=== PATIENT | male | born 2000 | race Caucasian/White ===

== ENCOUNTER 2023-04-18 05:45 | Emergency (ER) | payer MEDICAID ==
[~2023-04-18] VITALS: Ht 170.2 cm; Wt 90.7 kg
--- NOTE | 2023-04-18 05:45 | NUR ---
ANGELA [facility] TO CHAIR
[2023-04-18 05:53] VITALS: BP 128/80
--- NOTE | 2023-04-18 06:00 | NUR ---
DR. CALVILLO EVALUTING PT
[2023-04-18 06:11] VITALS: BP 128/80
--- NOTE | 2023-04-18 06:11 | NUR ---
Patient discharged with v/s stable. Written and verbal after care instructions given and explained. Patient verbalized understanding. Ambulatory with steady gait. Accompanied by CHP. All questions addressed prior to discharge. Advised to follow up with PMD.
== END 2023-04-18 06:11 ==
LOC: MED 05:45
DX: Z02.89 Encounter for other administrative examinations (principal); V89.2XXA Person injured in unspecified motor-vehicle accident, traffic, initial encounter; Y93.89 Activity, other specified; Y92.410 Unspecified street and highway as the place of occurrence of the external cause; Y99.8 Other external cause status
CPT/HCPCS: 99283